=== PATIENT | male | born 1950 | race Caucasian/White ===

== ENCOUNTER 2017-06-04 17:22 | Emergency (ER) | payer MEDICARE, OTHER ==
[~2017-06-04 17:22] MED LIST: ASPI-555 PO; ATOR10 PO; CLOP75TA14 PO; LORA-705 PO; VIT1CAPS5 PO; ZOLP10TA6 PO
[2017-06-04] MEDS ORDERED: FLUORESCEIN SODIUM 0.6 MG STRIP ONE (17:48)
[2017-06-04] MEDS ORDERED: TETRACAINE HCL 0.5% 4 ML OPHTH SOLN ONE (17:48)
[2017-08-30] MEDS ORDERED: ATOR40TA71 PO (13:25)
[2017-08-30] MEDS ORDERED: LOSA25TA21 PO (13:27)
[2017-08-30] MEDS ORDERED: CETI10TA57 PO (13:27)
[2017-08-30] MEDS ORDERED: ASPI-1181 PO (13:27)
[2017-08-30] MEDS ORDERED: VIT1CAPS47 PO (13:27)
[2017-08-30] MEDS ORDERED: OMEP20CA10 PO (13:27)
[2017-08-30] MEDS ORDERED: AMLO10TA2 PO (13:27)
== END 2017-06-04 18:43 | disposition home or self-care (01) ==
LOC: EDH 17:22
DX: S00.12XA Contusion of left eyelid and periocular area, initial encounter (principal); I25.10 Atherosclerotic heart disease of native coronary artery without angina pectoris; E78.5 Hyperlipidemia, unspecified; I10 Essential (primary) hypertension; Z86.73 Personal history of transient ischemic attack (TIA), and cerebral infarction without residual deficits; Z87.891 Personal history of nicotine dependence; X58.XXXA Exposure to other specified factors, initial encounter; Y93.89 Activity, other specified; Y92.89 Other specified places as the place of occurrence of the external cause; Y99.8 Other external cause status
CPT/HCPCS: 70450; 70486

== ENCOUNTER 2017-08-04 09:42 | Emergency (ER) | payer MEDICARE, OTHER ==
[2017-08-04 10:07] LABS: BASOPHILS % (AUTO) 0.7 % (0.0-5.0); EOSINOPHILS % (AUTO) 2.9 % (0.0-8.0); HEMATOCRIT 41.4 % (42-54); LYMPHOCYTES % (AUTO) 12.5 % (21.0-51.0); MEAN CORPUSCULAR HEMOGLOBIN 30.1 pg (27.0-33.0); MEAN CORPUSCULAR HGB CONC 34.1 g/dL (32.0-36.0); MEAN CORPUSCULAR VOLUME 88.4 fL (79-99); MONOCYTES % (AUTO) 8.7 % (3.0-13.0); NEUTROPHILS % (AUTO) 75.2 % (40.0-77.0); PLATELET COUNT (AUTO) 149 K/uL (130-400); RED BLOOD CELL COUNT(AUTO) 4.68 MIL/uL (4.50-6.20); RED CELL DISTRIBUTION WIDTH 14.5 % (11.0-15.5); WHITE BLOOD COUNT (AUTO) 7.8 K/uL (4.8-10.8)
[2017-08-04 10:15] LABS: CREATININE 1.3 mg/dL (0.5-1.5); POTASSIUM 4.1 mmol/L (3.5-5.1)
[2017-08-04 10:19] LABS: INR 0.92 (0.85-1.15); PARTIAL THROMBOPLASTIN TIME 24.3 SEC (26.3-35.5); PROTHROMBIN TIME 9.5 SEC (9.6-11.6)
[2017-08-04 10:21] LABS: ALBUMIN 3.8 g/dL (3.5-5.0); BILIRUBIN,TOTAL 1.1 mg/dL (0.2-1.0); TOTAL PROTEIN, SERUM 7.2 g/dL (6.0-8.3)
[2017-08-04 10:38] LABS: CREATINE KINASE, TOTAL 53 U/L (21-232); MYOGLOBIN 45 ng/mL (10-92); TROPONIN I < 0.04 ng/mL (0.00-0.06)
[2017-08-04] MEDS ORDERED: ASPIRIN 325 MG TABLET ONE (15:05)
[2017-08-30] MEDS ORDERED: ATOR40TA71 PO (13:25)
[2017-08-30] MEDS ORDERED: CETI10TA57 PO (13:27)
[2017-08-30] MEDS ORDERED: VIT1CAPS47 PO (13:27)
[2017-08-30] MEDS ORDERED: LOSA25TA21 PO (13:27)
[2017-08-30] MEDS ORDERED: ASPI-1181 PO (13:27)
[2017-08-30] MEDS ORDERED: OMEP20CA10 PO (13:27)
[2017-08-30] MEDS ORDERED: AMLO10TA2 PO (13:27)
== END 2017-08-04 15:31 | disposition home or self-care (01) ==
LOC: EDH 09:42
DX: I63.9 Cerebral infarction, unspecified (principal); E78.5 Hyperlipidemia, unspecified; I10 Essential (primary) hypertension; I25.10 Atherosclerotic heart disease of native coronary artery without angina pectoris; Z87.891 Personal history of nicotine dependence; Z88.8 Allergy status to other drugs, medicaments and biological substances
CPT/HCPCS: 36415; 70450; 80053; 82550; 82553; 82948; 83874; 84484; 85025; 85610; 85730; 93005

== ENCOUNTER 2017-09-03 05:51 | Day surgery (SDC) | payer MEDICARE ==
[2017-08-30 12:57] VITALS: BP 127/65
[2017-08-30 13:28] LABS: BASOPHILS % (AUTO) 0.4 % (0.0-5.0); EOSINOPHILS % (AUTO) 1.7 % (0.0-8.0); HEMATOCRIT 41.8 % (42-54); LYMPHOCYTES % (AUTO) 12.1 % (21.0-51.0); MEAN CORPUSCULAR HEMOGLOBIN 30.1 pg (27.0-33.0); MEAN CORPUSCULAR HGB CONC 33.8 g/dL (32.0-36.0); MONOCYTES % (AUTO) 7.4 % (3.0-13.0); NEUTROPHILS % (AUTO) 78.4 % (40.0-77.0); PLATELET COUNT (AUTO) 195 K/uL (130-400); RED CELL DISTRIBUTION WIDTH 14.1 % (11.0-15.5); WHITE BLOOD COUNT (AUTO) 9.4 K/uL (4.8-10.8)
[2017-08-30 13:39] LABS: CREATININE 1.2 mg/dL (0.5-1.5)
[2017-08-30 13:42] LABS: INR 0.99 (0.85-1.15); PARTIAL THROMBOPLASTIN TIME 27.5 SEC (26.3-35.5); PROTHROMBIN TIME 10.4 SEC (9.6-11.6)
[2017-09-03] VITALS (12 sets, daily range): BP systolic 92–118; BP diastolic 53–77
[~2017-09-03] VITALS: Ht 172.7 cm; Wt 86.0 kg
[~2017-09-03 05:51] MED LIST changes: +AMLO10TA2 PO; +ASPI-1181 PO; -ASPI-555 PO; -ATOR10 PO; +ATOR40TA71 PO; +CETI10TA57 PO; -LORA-705 PO; +LOSA25TA21 PO; +OMEP20CA10 PO; +PHARMACY COMMUNICATION MISC SCH; +VIT1CAPS47 PO; -VIT1CAPS5 PO
[2017-09-03] MEDS ORDERED: CEFAZOLIN SODIUM 1 GM VIAL ONE (07:24)
[2017-09-03] MEDS ORDERED: BUPIVACAINE/PF 0.25% 30ML VIAL IJ ONE (07:24)
[2017-09-03] MEDS ORDERED: MEPERIDINE-PF 25 MG/ML SYG ONE ×2 (07:25→07:44)
[2017-09-03] MEDS ORDERED: LIDOCAINE HCL 1% MDV 50ML VIAL ONE (07:25)
[2017-09-03] MEDS ORDERED: MIDAZOLAM HCL 1 MG/ML 2ML VIAL ONE ×3 (07:25→11:30)
[2017-09-03] MEDS ORDERED: SODIUM CHLORIDE 0.9% 1000ML 1,000 ML IV ONE (07:32)
[2017-09-03] MEDS ORDERED: ACETAMINOPHEN-CODEINE 300/30MG TAB PO PRN (08:15)
[2017-09-03] MEDS ORDERED: ACETAMINOPHEN 325 MG TAB PO PRN (08:15)
[2017-09-03] MEDS ORDERED: LIDOCAINE HCL 2% VISCOUS 15 ML UDCUP PO SCH (10:25)
[2017-09-03] MEDS ORDERED: FENTANYL CITRATE PF 50 MCG/1 ML 2ML VIAL ONE (11:29)
== END 2017-09-03 14:35 | disposition home or self-care (01) ==
LOC: DAH 05:51
PROVIDERS: ATTEND Internal Medicine Cardiovascular Disease
DX: G45.9 Transient cerebral ischemic attack, unspecified (principal); I35.1 Nonrheumatic aortic (valve) insufficiency; I25.10 Atherosclerotic heart disease of native coronary artery without angina pectoris; I21.3 ST elevation (STEMI) myocardial infarction of unspecified site; Q60.0 Renal agenesis, unilateral; E78.5 Hyperlipidemia, unspecified; I10 Essential (primary) hypertension; G43.909 Migraine, unspecified, not intractable, without status migrainosus; G47.33 Obstructive sleep apnea (adult) (pediatric); Z79.899 Other long term (current) drug therapy; R00.1 Bradycardia, unspecified; Z98.890 Other specified postprocedural states; I25.9 Chronic ischemic heart disease, unspecified
CPT/HCPCS: 33282; 36415; 80048; 85025; 85610; 85730; 93312; 99152; 99153; A4606; C1764; J0690; J2175 ×2; J2250 ×3; J3010; J3490 ×2; J7030

== ENCOUNTER 2017-09-05 12:10 | Emergency (ER) | payer MEDICARE ==
[~2017-09-05 12:10] MED LIST changes: -PHARMACY COMMUNICATION MISC SCH
[2017-09-05 12:29] LABS: BASOPHILS % (AUTO) 0.8 % (0.0-5.0); EOSINOPHILS % (AUTO) 2.2 % (0.0-8.0); HEMATOCRIT 39.8 % (42-54); LYMPHOCYTES % (AUTO) 16.1 % (21.0-51.0); MEAN CORPUSCULAR VOLUME 88.3 fL (79-99); MONOCYTES % (AUTO) 7.6 % (3.0-13.0); NEUTROPHILS % (AUTO) 73.3 % (40.0-77.0); PLATELET COUNT (AUTO) 164 K/uL (130-400); RED BLOOD CELL COUNT(AUTO) 4.51 MIL/uL (4.50-6.20); RED CELL DISTRIBUTION WIDTH 14.5 % (11.0-15.5); WHITE BLOOD COUNT (AUTO) 7.2 K/uL (4.8-10.8)
[2017-09-05 12:40] LABS: CREATININE 1.3 mg/dL (0.5-1.5); POTASSIUM 4.2 mmol/L (3.5-5.1)
[2017-09-05 12:41] LABS: INR 0.95 (0.85-1.15); PARTIAL THROMBOPLASTIN TIME 27.1 SEC (26.3-35.5)
[2017-09-05 12:44] LABS: BILIRUBIN,TOTAL 1.1 mg/dL (0.2-1.0); TOTAL PROTEIN, SERUM 7.2 g/dL (6.0-8.3)
[2017-09-05 13:13] LABS: APPEARANCE,URINE Clear (CLEAR); BILIRUBIN,URINE Negative (NEGATIVE); COLOR,URINE Yellow (YELLOW); GLUCOSE, URINE (UA) Negative (NEGATIVE); KETONES,URINE Negative (NEGATIVE); LEUKOCYTE ESTERASE ,URINE Negative (NEGATIVE); NITRATE,URINE Negative (NEGATIVE); OCCULT BLOOD,URINE Negative (NEGATIVE); PROTEIN,URINE Negative (NEGATIVE)
[2017-09-05 13:18] LABS: B-TYPE NATRIURETIC PEPTIDE 14 pg/mL (0-100)
== END 2017-09-05 15:14 | disposition home or self-care (01) ==
LOC: EDH 12:10
DX: R53.1 Weakness (principal); R41.82 Altered mental status, unspecified; R53.83 Other fatigue; R06.00 Dyspnea, unspecified; R79.1 Abnormal coagulation profile; I10 Essential (primary) hypertension; E78.5 Hyperlipidemia, unspecified; I25.10 Atherosclerotic heart disease of native coronary artery without angina pectoris; Z86.73 Personal history of transient ischemic attack (TIA), and cerebral infarction without residual deficits; Z88.8 Allergy status to other drugs, medicaments and biological substances
CPT/HCPCS: 36415; 70450; 71045; 80053; 81003; 82550; 83880; 84484; 85025; 85610; 85730; 93005

== ENCOUNTER 2018-05-06 06:25 | Inpatient (IN) | payer MEDICARE | END 2018-05-09 18:24 | disposition home or self-care (01) | LOC: EDH 06:25 → 2DH 05-07 17:42 → EDHIP 12:31 | DX: A79.1 Rickettsialpox due to Rickettsia akari (principal); G03.9 Meningitis, unspecified; R50.9 Fever, unspecified; I10 Essential (primary) hypertension; E78.5 Hyperlipidemia, unspecified; D69.6 Thrombocytopenia, unspecified ==

== ENCOUNTER 2018-05-11 09:45 | Emergency (ER) | payer MEDICARE, OTHER ==
[~2018-05-11] VITALS: Ht 172.7 cm; Wt 86.6 kg
[~2018-05-11 09:45] MED LIST changes: -AMLO10TA2 PO; +AMLO10TA7 PO; -LOSA25TA21 PO; +LOSA25TA41 PO
[2018-05-11 10:12] LABS: BASOPHILS % (AUTO) 0.3 % (0.0-5.0); EOSINOPHILS % (AUTO) 3.4 % (0.0-8.0); HEMATOCRIT 40.5 % (42-54); LYMPHOCYTES % (AUTO) 12.8 % (21.0-51.0); MEAN CORPUSCULAR HEMOGLOBIN 29.7 pg (27.0-33.0); MEAN CORPUSCULAR HGB CONC 33.6 g/dL (32.0-36.0); MEAN CORPUSCULAR VOLUME 88.5 fL (79-99); MONOCYTES % (AUTO) 6.9 % (3.0-13.0); NEUTROPHILS % (AUTO) 76.6 % (40.0-77.0); NUCLEATED RED BLOOD CELLS 0.1 % (0.0-0.19); PLATELET COUNT (AUTO) 147 K/uL (130-400); RED BLOOD CELL COUNT(AUTO) 4.57 MIL/uL (4.50-6.20); RED CELL DISTRIBUTION WIDTH 13.7 % (11.0-15.5); WHITE BLOOD COUNT (AUTO) 6.8 K/uL (4.8-10.8)
[2018-05-11 10:19] LABS: CREATININE 1.3 mg/dL (0.5-1.5); POTASSIUM 4.7 mmol/L (3.5-5.1)
[2018-05-11 10:21] LABS: INR 0.95 (0.85-1.15); PARTIAL THROMBOPLASTIN TIME 26.8 SEC (26.3-35.5)
[2018-05-11 10:24] LABS: ALBUMIN 3.4 g/dL (3.5-5.0); TOTAL PROTEIN, SERUM 7.1 g/dL (6.0-8.3)
[2018-05-11 10:57] LABS: APPEARANCE,URINE Clear (CLEAR); BILIRUBIN,URINE Negative (NEGATIVE); COLOR,URINE Yellow (YELLOW); GLUCOSE, URINE (UA) Negative (NEGATIVE); KETONES,URINE Negative (NEGATIVE); LEUKOCYTE ESTERASE ,URINE Negative (NEGATIVE); NITRATE,URINE Negative (NEGATIVE); OCCULT BLOOD,URINE Negative (NEGATIVE); PROTEIN,URINE Negative (NEGATIVE)
[2018-05-11] MEDS ORDERED: LEVETIRACETAM 1,000 MG in SODIUM CHLORIDE 0.9% 100 ML IV SCH (18:00)
== END 2018-05-11 18:53 | disposition home or self-care (01) ==
LOC: EDH 09:45
DX: R41.82 Altered mental status, unspecified (principal); I10 Essential (primary) hypertension; I25.2 Old myocardial infarction; I25.810 Atherosclerosis of coronary artery bypass graft(s) without angina pectoris; E78.5 Hyperlipidemia, unspecified; Z79.82 Long term (current) use of aspirin; Z88.8 Allergy status to other drugs, medicaments and biological substances
CPT/HCPCS: 36415; 70450; 71045; 80053; 81003; 82550; 84484; 85025; 85610; 85730; 93005; 96365; 99284; J1953

== ENCOUNTER → 2019-04-06 | Outpatient (CLI) | payer OTHER ==
[~2019-04-06] MED LIST changes: +OMEP-298 PO; -OMEP20CA10 PO
== END | disposition home or self-care (01) ==
LOC: RAH 07:53
PROVIDERS: ATTEND Internal Medicine Gastroenterology
DX: M75.22 Bicipital tendinitis, left shoulder (principal); M75.21 Bicipital tendinitis, right shoulder; M19.012 Primary osteoarthritis, left shoulder; M75.102 Unspecified rotator cuff tear or rupture of left shoulder, not specified as traumatic; M75.101 Unspecified rotator cuff tear or rupture of right shoulder, not specified as traumatic; Z86.010 Personal history of colon polyps
CPT/HCPCS: 73221; 74270

== ENCOUNTER 2020-03-09 07:00 | Emergency (ER) | payer OTHER, MEDICARE ==
[~2020-03-09 07:00] MED LIST changes: +AMLO-258 PO; -AMLO10TA7 PO; -ASPI-1181 PO; +ASPI-1443 PO; -OMEP-298 PO; +OMEP20CA12 PO
[2020-03-09] MEDS ORDERED: ASPIRIN 325 MG TABLET ONE (07:19)
[2020-03-09 07:51] LABS: BASOPHILS % (AUTO) 0.2 % (0.0-5.0); EOSINOPHILS % (AUTO) 1.5 % (0.0-8.0); HEMATOCRIT 43.2 % (42-54); LYMPHOCYTES % (AUTO) 10.7 % (21.0-51.0); MEAN CORPUSCULAR HEMOGLOBIN 29.3 pg (27.0-33.0); MEAN CORPUSCULAR HGB CONC 32.6 g/dL (32.0-36.0); MEAN CORPUSCULAR VOLUME 89.8 fL (79-99); PLATELET COUNT (AUTO) 113 K/uL (130-400); RED BLOOD CELL COUNT(AUTO) 4.81 MIL/uL (4.50-6.20); RED CELL DISTRIBUTION WIDTH 13.6 % (11.0-15.5); WHITE BLOOD COUNT (AUTO) 5.4 K/uL (4.8-10.8)
[2020-03-09 08:05] LABS: BILIRUBIN,TOTAL 1.2 mg/dL (0.2-1.0); CREATININE 1.4 mg/dL (0.5-1.5); POTASSIUM 3.9 mmol/L (3.5-5.1); TOTAL PROTEIN, SERUM 7.3 g/dL (6.0-8.3)
[2020-03-09 08:27] LABS: INR 0.91 (0.85-1.15); PARTIAL THROMBOPLASTIN TIME 25.8 SEC (26.3-35.5); PROTHROMBIN TIME 9.9 SEC (9.6-11.6)
[2020-03-09 08:30] LABS: B-TYPE NATRIURETIC PEPTIDE 7 pg/mL (0-100)
[2020-03-09 08:57] LABS: CRP QUANTITATIVE 14.2 mg/L (0.00-9.0)
== END 2020-03-09 10:12 | disposition home or self-care (01) ==
LOC: EDH 07:00
DX: U07.1 COVID-19 (principal); J40 Bronchitis, not specified as acute or chronic; I10 Essential (primary) hypertension; E78.5 Hyperlipidemia, unspecified; I25.2 Old myocardial infarction; I25.10 Atherosclerotic heart disease of native coronary artery without angina pectoris; Z86.73 Personal history of transient ischemic attack (TIA), and cerebral infarction without residual deficits; Z79.899 Other long term (current) drug therapy
CPT/HCPCS: 36415; 71045; 80053; 82550; 82728; 83615; 83880; 84484; 85025; 85378; 85610; 85651; 85730; 86140; 87426; 87804; 93005

== ENCOUNTER 2020-03-14 14:58 | Inpatient (IN) | payer MEDICARE, OTHER ==
[~2020-03-14] VITALS: Ht 172.7 cm; Wt 88.4 kg
[2020-03-14 15:57] LABS: BASOPHILS % (AUTO) 0.2 % (0.0-5.0); EOSINOPHILS % (AUTO) 0.8 % (0.0-8.0); LYMPHOCYTES % (AUTO) 10.6 % (21.0-51.0); MEAN CORPUSCULAR HEMOGLOBIN 28.8 pg (27.0-33.0); MEAN CORPUSCULAR HGB CONC 32.8 g/dL (32.0-36.0); MEAN CORPUSCULAR VOLUME 87.9 fL (79-99); MONOCYTES % (AUTO) 6.7 % (3.0-13.0); NEUTROPHILS % (AUTO) 80.9 % (40.0-77.0); PLATELET COUNT (AUTO) 128 K/uL (130-400); RED BLOOD CELL COUNT(AUTO) 4.55 MIL/uL (4.50-6.20); RED CELL DISTRIBUTION WIDTH 13.4 % (11.0-15.5); WHITE BLOOD COUNT (AUTO) 4.9 K/uL (4.8-10.8)
[2020-03-14] MEDS ORDERED: DEXAMETHASONE SOD PHOSPHATE 10MG/ML 1ML VIAL ONE (15:59)
[2020-03-14] MEDS ORDERED: ACETAMINOPHEN 325 MG TAB ONE (16:00)
[2020-03-14] MEDS ORDERED: CEFTRIAXONE SODIUM 1 GM ONE (16:00)
[2020-03-14] MEDS ORDERED: AZITHROMYCIN 500MG+NS 250ML 250 ML IV ONE (16:00)
[2020-03-14 16:01] LABS: APPEARANCE,URINE Clear (CLEAR); BILIRUBIN,URINE Negative (NEGATIVE); COLOR,URINE Dark Yellow (YELLOW); GLUCOSE, URINE (UA) Negative (NEGATIVE); KETONES,URINE Trace mg/dL (NEGATIVE); LEUKOCYTE ESTERASE ,URINE Negative (NEGATIVE); NITRATE,URINE Negative (NEGATIVE); OCCULT BLOOD,URINE Negative (NEGATIVE); PROTEIN,URINE POS 1+ mg/dL (NEGATIVE)
[2020-03-14 16:11] LABS: CREATININE 1.4 mg/dL (0.5-1.5); POTASSIUM 4.3 mmol/L (3.5-5.1)
[2020-03-14 16:15] LABS: ABG BASE EXCESS -0.3 mmol/L (-2.0-3.0); ABG HCO3 23.4 mmol/L (21.0-28.0); ABG OXYGEN SATURATION 97.1 % (95.0-99.0); ABG PCO2 36 mmHg (35-48)
[2020-03-14 16:15] LABS: RBC,URINE 0-1 /HPF (0-1); WBC,URINE 0-1 /HPF (0-1)
[2020-03-14 16:15] LABS: ALBUMIN 3.1 g/dL (3.5-5.0)
[2020-03-14 16:16] LABS: BACTERIA,URINE Rare /HPF (None Seen); SQUAMOUS EPITHELIAL CELL,UR Few /HPF (0-2)
[2020-03-14 16:20] LABS: B-TYPE NATRIURETIC PEPTIDE < 5 pg/mL (0-100)
[2020-03-14 16:22] LABS: CRP QUANTITATIVE 74.6 mg/L (0.00-9.0)
[2020-03-14] MEDS ORDERED: NITROGLYCERIN 0.4 MG SL TAB SL PRN (19:30)
[2020-03-14] MEDS ORDERED: DIPHENHYDRAMINE HCL 25 MG CAPSULE PO PRN (19:30)
[2020-03-14] MEDS ORDERED: ONDANSETRON HCL 4 MG/2 ML VIAL IV PRN (19:30)
[2020-03-14] MEDS ORDERED: ERGOCALCIFEROL (VITAMIN D2) 50,000 UNIT CAPSULE PO ONE (19:30)
[2020-03-14] MEDS ORDERED: ACETAMINOPHEN 325 MG TAB PO PRN ×2 (19:30)
[2020-03-14 19:44] LABS: MAGNESIUM 2.1 mg/dL (1.80-2.40)
[2020-03-14 20:49] LABS: CREATINE KINASE, TOTAL 29 U/L (21-232); MYOGLOBIN 51 ng/mL (10-92); TROPONIN I < 0.04 ng/mL (0.00-0.06)
[2020-03-14] MEDS: ACETYLCYSTEINE 600 MG CAPSULE PO SCH (21:00)
[2020-03-14] MEDS: FAMOTIDINE 20MG TAB 20 MG TAB PO SCH (21:00)
[2020-03-14] MEDS ORDERED: FAMOTIDINE 20MG TAB 20 MG TAB ONE (21:39)
[2020-03-14] MEDS ORDERED: ERGOCALCIFEROL (VITAMIN D2) 50,000 UNIT CAPSULE ONE (21:39)
[2020-03-14] MEDS ORDERED: ACETYLCYSTEINE 600 MG CAPSULE ONE (21:40)
[2020-03-14] MEDS ORDERED: LACTATED RINGERS 1000ML 1,000 ML IV ONE (21:40)
[2020-03-15] MEDS: ALBUTEROL INHALER 90MCG/INH IH SCH ×6 (01:55→22:00)
[2020-03-15 04:31] LABS: BASOPHILS % (AUTO) 0.2 % (0.0-5.0); HEMATOCRIT 43.2 % (42-54); LYMPHOCYTES % (AUTO) 9.2 % (21.0-51.0); MEAN CORPUSCULAR HEMOGLOBIN 29.2 pg (27.0-33.0); MEAN CORPUSCULAR HGB CONC 33.3 g/dL (32.0-36.0); MEAN CORPUSCULAR VOLUME 87.6 fL (79-99); MONOCYTES % (AUTO) 3.4 % (3.0-13.0); NEUTROPHILS % (AUTO) 86.1 % (40.0-77.0); PLATELET COUNT (AUTO) 143 K/uL (130-400); RED BLOOD CELL COUNT(AUTO) 4.93 MIL/uL (4.50-6.20); RED CELL DISTRIBUTION WIDTH 13.1 % (11.0-15.5); WHITE BLOOD COUNT (AUTO) 4.5 K/uL (4.8-10.8)
[2020-03-15 04:40] VITALS: BP 148/69
[2020-03-15 04:45] LABS: ALBUMIN 3.1 g/dL (3.5-5.0); BILIRUBIN,TOTAL 0.8 mg/dL (0.2-1.0); CREATININE 1.3 mg/dL (0.5-1.5); CRP QUANTITATIVE 78.3 mg/L (0.00-9.0); POTASSIUM 4.9 mmol/L (3.5-5.1)
[2020-03-15] MEDS ORDERED: LEVE-43 PO (05:02)
[2020-03-15] MEDS ORDERED: NITR0.4T50 SL (05:02)
[2020-03-15] MEDS: LACTATED RINGERS 1000ML 1,000 ML IV SCH ×2 (05:34→23:29)
[2020-03-15 08:10] VITALS: BP 148/85
[2020-03-15] MEDS ORDERED: AZITHROMYCIN 500MG+NS 250ML 250 ML IV SCH (09:00)
[2020-03-15] MEDS: ZINC SULFATE 220 CAPSULE PO SCH (10:15)
[2020-03-15] MEDS: ACETYLCYSTEINE 600 MG CAPSULE PO SCH ×2 (10:15→20:33)
[2020-03-15] MEDS: DEXAMETHASONE SOD PHOSPHATE 4 MG/ML 1ML VIAL IVP SCH (10:16)
[2020-03-15] MEDS: FAMOTIDINE 20MG TAB 20 MG TAB PO SCH ×2 (10:17→20:33)
[2020-03-15] MEDS: ASCORBIC ACID 500 MG TAB PO SCH (10:17)
[2020-03-15] MEDS: CEFTRIAXONE SODIUM 1 GM IVP SCH (10:18)
[2020-03-15 18:15] VITALS: BP 138/78
[2020-03-15 20:20] VITALS: BP 128/76
[2020-03-15] MEDS ORDERED: ATORVASTATIN CALCIUM 40 MG TABLET PO SCH (21:00)
[2020-03-15] MEDS: LEVETIRACETAM 500 MG TABLET PO SCH (21:16)
[2020-03-15] MEDS: ENOXAPARIN SODIUM 40 MG/0.4 ML SYRINGE SQ SCH (23:11)
[2020-03-16 00:32] VITALS: BP 101/52
[2020-03-16] MEDS: ALBUTEROL INHALER 90MCG/INH IH SCH ×2 (02:00→06:00)
[2020-03-16 04:21] VITALS: BP 150/72
[2020-03-16 04:58] LABS: HEMATOCRIT 38.2 % (42-54); LYMPHOCYTES % (AUTO) 4.8 % (21.0-51.0); MEAN CORPUSCULAR HEMOGLOBIN 29.4 pg (27.0-33.0); MEAN CORPUSCULAR HGB CONC 33.5 g/dL (32.0-36.0); MEAN CORPUSCULAR VOLUME 87.8 fL (79-99); MONOCYTES % (AUTO) 5.7 % (3.0-13.0); NEUTROPHILS % (AUTO) 88.7 % (40.0-77.0); PLATELET COUNT (AUTO) 171 K/uL (130-400); RED BLOOD CELL COUNT(AUTO) 4.35 MIL/uL (4.50-6.20); RED CELL DISTRIBUTION WIDTH 13.1 % (11.0-15.5); WHITE BLOOD COUNT (AUTO) 9.3 K/uL (4.8-10.8)
[2020-03-16 05:13] LABS: ALBUMIN 2.8 g/dL (3.5-5.0); BILIRUBIN,TOTAL 0.6 mg/dL (0.2-1.0); CREATININE 1.2 mg/dL (0.5-1.5); CRP QUANTITATIVE 33.5 mg/L (0.00-9.0); POTASSIUM 4.1 mmol/L (3.5-5.1); TOTAL PROTEIN, SERUM 6.3 g/dL (6.0-8.3)
[2020-03-16 06:56] LABS: INR 0.96 (0.85-1.15); PROTHROMBIN TIME 10.4 SEC (9.6-11.6)
[2020-03-16] MEDS ORDERED: ASCO500T20 PO ×2 (08:01)
[2020-03-16] MEDS ORDERED: DEXA6TAB PO ×2 (08:01)
[2020-03-16] MEDS ORDERED: ZINC220C6 PO ×2 (08:01)
[2020-03-16] MEDS ORDERED: APIX2.5T PO ×2 (08:01)
[2020-03-16] MEDS: ACETYLCYSTEINE 600 MG CAPSULE PO SCH (08:54)
[2020-03-16] MEDS: LEVETIRACETAM 500 MG TABLET PO SCH (08:54)
[2020-03-16] MEDS: DEXAMETHASONE SOD PHOSPHATE 4 MG/ML 1ML VIAL IVP SCH (08:54)
[2020-03-16] MEDS: FAMOTIDINE 20MG TAB 20 MG TAB PO SCH (08:54)
[2020-03-16] MEDS: CEFTRIAXONE SODIUM 1 GM IVP SCH (08:54)
[2020-03-16] MEDS: ENOXAPARIN SODIUM 40 MG/0.4 ML SYRINGE SQ SCH (08:55)
[2020-03-16] MEDS: ASCORBIC ACID 500 MG TAB PO SCH (08:55)
[2020-03-16] MEDS: ZINC SULFATE 220 CAPSULE PO SCH (08:55)
[2020-03-16] MEDS ORDERED: CLOPIDOGREL BISULFATE 75 MG TAB PO SCH (09:00)
[2020-03-16] MEDS ORDERED: ASPIRIN 81 MG EC TAB PO SCH (09:00)
== END 2020-03-16 09:50 | disposition home or self-care (01) | DRG 177 ==
LOC: EDH 14:58 → EDHIP 19:05 → 2BH 03-15 04:37
PROVIDERS: ADMIT Internal Medicine; ATTEND Internal Medicine
DX: U07.1 COVID-19 (principal); J12.89 Other viral pneumonia; J96.00 Acute respiratory failure, unspecified whether with hypoxia or hypercapnia; D68.59 Other primary thrombophilia; N18.30 Chronic kidney disease, stage 3 unspecified; E78.5 Hyperlipidemia, unspecified; G40.909 Epilepsy, unspecified, not intractable, without status epilepticus; I12.9 Hypertensive chronic kidney disease with stage 1 through stage 4 chronic kidney disease, or unspecified chronic kidney disease; D69.6 Thrombocytopenia, unspecified; R79.89 Other specified abnormal findings of blood chemistry; Z88.8 Allergy status to other drugs, medicaments and biological substances; I25.2 Old myocardial infarction; Z95.5 Presence of coronary angioplasty implant and graft; Z86.73 Personal history of transient ischemic attack (TIA), and cerebral infarction without residual deficits; Z83.3 Family history of diabetes mellitus; Z83.6 Family history of other diseases of the respiratory system; Z84.89 Family history of other specified conditions; Z82.49 Family history of ischemic heart disease and other diseases of the circulatory system
CPT/HCPCS: 36415; 36600; 71045; 80053; 81001; 82550; 82728; 82803; 83605; 83615; 83735; 83874; 83880; 84145; 84484; 85025; 85378; 85610; 86140; 87040; 87449; 93005; 93970; 94760; G0378; J0456; J0696; J1100; J1650; J7120; U0003

== ENCOUNTER 2020-03-17 10:11 | Inpatient (IN) | payer MEDICARE, OTHER ==
[~2020-03-17] VITALS: Ht 172.7 cm; Wt 41.4 kg
[2020-03-17] VITALS (17 sets, daily range): BP systolic 108–137; BP diastolic 58–78
[~2020-03-17 10:11] MED LIST changes: +APIX2.5T PO; +ASCO500T20 PO; +DEXA6TAB PO; +LEVE-43 PO; +NITR0.4T50 SL; +ZINC220C6 PO
[2020-03-17 11:01] LABS: BASOPHILS % (AUTO) 0.2 % (0.0-5.0); HEMATOCRIT 38.4 % (42-54); LYMPHOCYTES % (AUTO) 3.6 % (21.0-51.0); MEAN CORPUSCULAR HEMOGLOBIN 29.4 pg (27.0-33.0); MEAN CORPUSCULAR HGB CONC 33.9 g/dL (32.0-36.0); MEAN CORPUSCULAR VOLUME 86.9 fL (79-99); MONOCYTES % (AUTO) 9.7 % (3.0-13.0); NEUTROPHILS % (AUTO) 85.1 % (40.0-77.0); PLATELET COUNT (AUTO) 208 K/uL (130-400); RED BLOOD CELL COUNT(AUTO) 4.42 MIL/uL (4.50-6.20); RED CELL DISTRIBUTION WIDTH 13.6 % (11.0-15.5); WHITE BLOOD COUNT (AUTO) 11.6 K/uL (4.8-10.8)
[2020-03-17 11:20] LABS: ALANINE AMINOTRANSFERASE 62 U/L (12-78); ALBUMIN 3.1 g/dL (3.5-5.0); ASPARTATE AMINOTRANSFERASE 46 U/L (10-37); CARBON DIOXIDE 25 mmol/L (21-32); CHLORIDE 102 mmol/L (101-111); CREATINE KINASE, TOTAL 47 U/L (21-232); CREATININE 1.5 mg/dL (0.5-1.5); GLOMERULAR FILTR. RATE CALC 49 mL/min (>60); GLUCOSE,RANDOM 119 mg/dL (70-105); LACTATE DEHYDROGENASE 236 U/L (81-234); MYOGLOBIN 81 ng/mL (10-92); POTASSIUM 3.9 mmol/L (3.5-5.1); SODIUM SERUM 136 mmol/L (136-145); TOTAL PROTEIN, SERUM 6.7 g/dL (6.0-8.3); TROPONIN I < 0.04 ng/mL (0.00-0.06); UREA NITROGEN, BLOOD 28 mg/dL (7-18)
[2020-03-17 11:43] LABS: INR 0.98 (0.85-1.15); PROTHROMBIN TIME 10.6 SEC (9.6-11.6)
[2020-03-17 12:03] LABS: ERYTHROCYTE SEDIMENTATION RATE 41 MM/HR (0-20)
[2020-03-17 13:07] LABS: APPEARANCE,URINE Clear (CLEAR); BILIRUBIN,URINE Negative (NEGATIVE); COLOR,URINE Yellow (YELLOW); GLUCOSE, URINE (UA) Negative (NEGATIVE); KETONES,URINE Negative (NEGATIVE); LEUKOCYTE ESTERASE ,URINE Negative (NEGATIVE); NITRATE,URINE Negative (NEGATIVE); OCCULT BLOOD,URINE Negative (NEGATIVE); PH,URINE 5.5 (5.0-8.0); PROTEIN,URINE POS 1+ mg/dL (NEGATIVE)
[2020-03-17 13:20] LABS: ABG BASE EXCESS 2.8 mmol/L (-2.0-3.0); ABG HCO3 26.5 mmol/L (21.0-28.0); ABG OXYGEN SATURATION 92.9 % (95.0-99.0); ABG PCO2 38 mmHg (35-48)
[2020-03-17 13:26] LABS: BACTERIA,URINE Rare /HPF (None Seen); RBC,URINE 0-1 /HPF (0-1); SQUAMOUS EPITHELIAL CELL,UR Rare /HPF (0-2); WBC,URINE 0-1 /HPF (0-1)
[2020-03-17] MEDS ORDERED: DOPAMINE 800MG/D5 250ML 250 ML IV ONE (14:12)
[2020-03-17] MEDS ORDERED: MAG HYDROX/AL HYDROX/SIMETH ES 30 ML SUSP UDCUP PO PRN (14:45)
[2020-03-17] MEDS ORDERED: DEXAMETHASONE SOD PHOSPHATE 4 MG/ML 1ML VIAL IVP SCH (14:45)
[2020-03-17] MEDS ORDERED: DiphenhydrAMINE HCL 50 MG/ML VIAL IV PRN (14:45)
[2020-03-17] MEDS ORDERED: GUAIFENESIN-DM 200/20 MG 10 ML PO PRN (14:45)
[2020-03-17] MEDS ORDERED: LACTULOSE 20 GM/30 ML UDCUP PO PRN (14:45)
[2020-03-17] MEDS ORDERED: ONDANSETRON HCL 4 MG/2 ML VIAL IV PRN (14:45)
[2020-03-17] MEDS ORDERED: DIPHENHYDRAMINE HCL 25 MG CAPSULE PO PRN (14:45)
[2020-03-17] MEDS ORDERED: ACETAMINOPHEN 325 MG TAB PO PRN ×3 (14:45)
[2020-03-17] MEDS ORDERED: ERGOCALCIFEROL (VITAMIN D2) 50,000 UNIT CAPSULE PO SCH (14:45)
[2020-03-17] MEDS ORDERED: MORPHINE SULFATE 2 MG/ML 1ML SYG IV PRN (14:45)
[2020-03-17] MEDS: DOXYCYCLINE 100MG+NS 250ML IV SCH (14:45)
[2020-03-17] MEDS ORDERED: IPRATROPIUM/ALBUTEROL SULFATE 3 ML SOLUTION IH PRN (14:45)
[2020-03-17] MEDS ORDERED: PHARMACY COMMUNICATION MISC SCH ×2 (14:45→16:45)
[2020-03-17] MEDS ORDERED: HYDRALAZINE HCL 20 MG/ML VIAL IV PRN (14:45)
[2020-03-17] MEDS ORDERED: NITROGLYCERIN 0.4 MG SL TAB SL PRN (14:45)
[2020-03-17] MEDS: CEFTRIAXONE SODIUM 1 GM IVP SCH (14:45)
[2020-03-17] MEDS ORDERED: ACETAMINOPHEN-CODEINE 300/30MG TAB PO PRN (14:45)
[2020-03-17] MEDS ORDERED: CEFTRIAXONE SODIUM 1 GM ONE (15:26)
[2020-03-17] MEDS ORDERED: DOXYCYCLINE 100MG+NS 250ML 250 ML IV ONE (15:26)
[2020-03-17] MEDS ORDERED: SODIUM CHLORIDE 0.9% 50 ML IV ONE (15:27)
[2020-03-17] MEDS ORDERED: DEXAMETHASONE SOD PHOSPHATE 10MG/ML 1ML VIAL ONE (15:32)
[2020-03-17] MEDS: FAMOTIDINE 20MG TAB 20 MG TAB PO SCH (21:17)
[2020-03-17] MEDS: BENZONATATE 100 MG CAPSULE PO SCH (21:17)
[2020-03-17] MEDS: ACETYLCYSTEINE 600 MG CAPSULE PO SCH (21:17)
[2020-03-18] VITALS (82 sets, daily range): BP systolic 97–165; BP diastolic 40–94
[2020-03-18] MEDS: CEFTRIAXONE SODIUM 1 GM IVP SCH ×2 (02:07→14:08)
[2020-03-18] MEDS: DOXYCYCLINE 100MG+NS 250ML IV SCH ×2 (02:07→14:08)
[2020-03-18 04:13] LABS: BASOPHILS % (AUTO) 0.4 % (0.0-5.0); HEMATOCRIT 40.8 % (42-54); LYMPHOCYTES % (AUTO) 3.1 % (21.0-51.0); MEAN CORPUSCULAR HEMOGLOBIN 28.7 pg (27.0-33.0); MEAN CORPUSCULAR HGB CONC 32.6 g/dL (32.0-36.0); MEAN CORPUSCULAR VOLUME 88.1 fL (79-99); MONOCYTES % (AUTO) 4.8 % (3.0-13.0); PLATELET COUNT (AUTO) 223 K/uL (130-400); RED BLOOD CELL COUNT(AUTO) 4.63 MIL/uL (4.50-6.20); RED CELL DISTRIBUTION WIDTH 13.3 % (11.0-15.5); WHITE BLOOD COUNT (AUTO) 13.4 K/uL (4.8-10.8)
[2020-03-18 04:44] LABS: ALBUMIN 2.7 g/dL (3.5-5.0); BILIRUBIN,TOTAL 0.7 mg/dL (0.2-1.0); CREATININE 1.3 mg/dL (0.5-1.5); CRP QUANTITATIVE 88.7 mg/L (0.00-9.0); POTASSIUM 4.2 mmol/L (3.5-5.1); TOTAL PROTEIN, SERUM 6.6 g/dL (6.0-8.3)
[2020-03-18] MEDS: ACETYLCYSTEINE 600 MG CAPSULE PO SCH ×2 (10:14→21:00)
[2020-03-18] MEDS: ZINC SULFATE 220 CAPSULE PO SCH (10:14)
[2020-03-18] MEDS: ASCORBIC ACID 500 MG TAB PO SCH (10:15)
[2020-03-18] MEDS: ENOXAPARIN SODIUM 60 MG/0.6 ML SQ SCH (10:15)
[2020-03-18] MEDS: BENZONATATE 100 MG CAPSULE PO SCH ×3 (10:17→21:00)
[2020-03-18] MEDS: ATORVASTATIN CALCIUM 40 MG TABLET PO SCH (21:00)
[2020-03-18] MEDS: FAMOTIDINE 20MG TAB 20 MG TAB PO SCH (21:00)
[2020-03-18] MEDS: LEVETIRACETAM 500 MG TABLET PO SCH (21:00)
[2020-03-19] VITALS (79 sets, daily range): BP systolic 84–148; BP diastolic 39–98
[2020-03-19] MEDS: CEFTRIAXONE SODIUM 1 GM IVP SCH ×2 (02:45→16:20)
[2020-03-19] MEDS: DOXYCYCLINE 100MG+NS 250ML IV SCH ×2 (02:45→16:20)
[2020-03-19 05:24] LABS: BASOPHILS % (AUTO) 0.5 % (0.0-5.0); EOSINOPHILS % (AUTO) 0.1 % (0.0-8.0); HEMATOCRIT 39.6 % (42-54); LYMPHOCYTES % (AUTO) 5.2 % (21.0-51.0); MEAN CORPUSCULAR HEMOGLOBIN 28.8 pg (27.0-33.0); MEAN CORPUSCULAR HGB CONC 32.8 g/dL (32.0-36.0); MEAN CORPUSCULAR VOLUME 87.8 fL (79-99); PLATELET COUNT (AUTO) 234 K/uL (130-400); RED BLOOD CELL COUNT(AUTO) 4.51 MIL/uL (4.50-6.20); RED CELL DISTRIBUTION WIDTH 13.7 % (11.0-15.5); WHITE BLOOD COUNT (AUTO) 13.1 K/uL (4.8-10.8)
[2020-03-19 05:37] LABS: ALBUMIN 2.6 g/dL (3.5-5.0); BILIRUBIN,TOTAL 0.7 mg/dL (0.2-1.0); CREATININE 1.2 mg/dL (0.5-1.5); CRP QUANTITATIVE 45.4 mg/L (0.00-9.0); POTASSIUM 3.7 mmol/L (3.5-5.1); TOTAL PROTEIN, SERUM 6.4 g/dL (6.0-8.3)
[2020-03-19] MEDS ORDERED: NON-FORMULARY MEDICATION 1 EACH (Cetirizine HCl 10 MG) PO SCH (09:00)
[2020-03-19] MEDS: BENZONATATE 100 MG CAPSULE PO SCH ×3 (09:51→20:45)
[2020-03-19] MEDS: CETIRIZINE HCL 5 MG TABLET PO SCH (09:51)
[2020-03-19] MEDS: ZINC SULFATE 220 CAPSULE PO SCH (09:51)
[2020-03-19] MEDS: ASPIRIN 81 MG EC TAB PO SCH (09:51)
[2020-03-19] MEDS: ASCORBIC ACID 500 MG TAB PO SCH (09:51)
[2020-03-19] MEDS: LEVETIRACETAM 500 MG TABLET PO SCH ×2 (09:51→20:45)
[2020-03-19] MEDS: ACETYLCYSTEINE 600 MG CAPSULE PO SCH ×2 (09:51→20:45)
[2020-03-19] MEDS: ENOXAPARIN SODIUM 60 MG/0.6 ML SQ SCH (09:52)
[2020-03-19] MEDS: FAMOTIDINE 20MG TAB 20 MG TAB PO SCH (20:45)
[2020-03-19] MEDS: ATORVASTATIN CALCIUM 40 MG TABLET PO SCH (20:45)
[2020-03-20] VITALS (43 sets, daily range): BP systolic 93–164; BP diastolic 42–90
[2020-03-20 04:27] LABS: BASOPHILS % (AUTO) 0.7 % (0.0-5.0); EOSINOPHILS % (AUTO) 0.6 % (0.0-8.0); HEMATOCRIT 38.2 % (42-54); LYMPHOCYTES % (AUTO) 11.8 % (21.0-51.0); MEAN CORPUSCULAR HEMOGLOBIN 28.9 pg (27.0-33.0); MEAN CORPUSCULAR HGB CONC 32.7 g/dL (32.0-36.0); MEAN CORPUSCULAR VOLUME 88.4 fL (79-99); MONOCYTES % (AUTO) 8.2 % (3.0-13.0); NEUTROPHILS % (AUTO) 71.6 % (40.0-77.0); PLATELET COUNT (AUTO) 219 K/uL (130-400); RED BLOOD CELL COUNT(AUTO) 4.32 MIL/uL (4.50-6.20); RED CELL DISTRIBUTION WIDTH 13.6 % (11.0-15.5); WHITE BLOOD COUNT (AUTO) 10.3 K/uL (4.8-10.8)
[2020-03-20 04:38] LABS: ALBUMIN 2.5 g/dL (3.5-5.0); BILIRUBIN,TOTAL 0.7 mg/dL (0.2-1.0); CREATININE 1.2 mg/dL (0.5-1.5); CRP QUANTITATIVE 34.4 mg/L (0.00-9.0); POTASSIUM 4.2 mmol/L (3.5-5.1); TOTAL PROTEIN, SERUM 6.1 g/dL (6.0-8.3)
[2020-03-20] MEDS: LEVETIRACETAM 500 MG TABLET PO SCH (10:32)
[2020-03-20] MEDS: ASPIRIN 81 MG EC TAB PO SCH (10:32)
[2020-03-20] MEDS: CETIRIZINE HCL 5 MG TABLET PO SCH (10:33)
[2020-03-20] MEDS: ASCORBIC ACID 500 MG TAB PO SCH (10:33)
[2020-03-20] MEDS: ZINC SULFATE 220 CAPSULE PO SCH (10:33)
[2020-03-20] MEDS: ACETYLCYSTEINE 600 MG CAPSULE PO SCH (10:33)
[2020-03-20] MEDS: ENOXAPARIN SODIUM 60 MG/0.6 ML SQ SCH (10:34)
[2020-03-20] MEDS: BENZONATATE 100 MG CAPSULE PO SCH (10:34)
== END 2020-03-20 15:00 | disposition home or self-care (01) | DRG 177 ==
LOC: EDH 10:11 → EDHIP 14:25 → 2BH 17:36
PROVIDERS: ADMIT Hospitalist; ATTEND Hospitalist
DX: U07.1 COVID-19 (principal); J12.89 Other viral pneumonia; J96.21 Acute and chronic respiratory failure with hypoxia; J44.0 Chronic obstructive pulmonary disease with (acute) lower respiratory infection; E11.22 Type 2 diabetes mellitus with diabetic chronic kidney disease; E78.5 Hyperlipidemia, unspecified; I95.9 Hypotension, unspecified; I12.9 Hypertensive chronic kidney disease with stage 1 through stage 4 chronic kidney disease, or unspecified chronic kidney disease; I25.10 Atherosclerotic heart disease of native coronary artery without angina pectoris; I25.2 Old myocardial infarction; N18.30 Chronic kidney disease, stage 3 unspecified; Z86.73 Personal history of transient ischemic attack (TIA), and cerebral infarction without residual deficits; Z95.5 Presence of coronary angioplasty implant and graft; Z88.6 Allergy status to analgesic agent; Z88.8 Allergy status to other drugs, medicaments and biological substances
CPT/HCPCS: 36415; 36600; 71045; 80053; 81001; 82550; 82728; 82803; 83605; 83615; 83874; 84145; 84484; 85025; 85378; 85610; 85651; 85730; 86140; 86850; 86900; 86901; 87040; 87088; 93005; G0378; J0696; J1100; J1265; J1650; J3490

== ENCOUNTER 2020-03-23 09:20 | Inpatient (IN) | payer MEDICARE, OTHER ==
[~2020-03-23] VITALS: Ht 172.7 cm; Wt 88.0 kg
[~2020-03-23 09:20] MED LIST changes: -AMLO-258 PO; -CLOP75TA14 PO; -DEXA6TAB PO; -LOSA25TA41 PO
[2020-03-23] MEDS ORDERED: ALBUTEROL INHALER 90MCG/INH IH ONE (11:05)
[2020-03-23 11:38] LABS: BASOPHILS % (AUTO) 0.7 % (0.0-5.0); HEMATOCRIT 43.3 % (42-54); LYMPHOCYTES % (AUTO) 10.9 % (21.0-51.0); MEAN CORPUSCULAR HEMOGLOBIN 29.5 pg (27.0-33.0); MEAN CORPUSCULAR VOLUME 89.5 fL (79-99); MONOCYTES % (AUTO) 7.2 % (3.0-13.0); PLATELET COUNT (AUTO) 278 K/uL (130-400); RED BLOOD CELL COUNT(AUTO) 4.84 MIL/uL (4.50-6.20); RED CELL DISTRIBUTION WIDTH 13.6 % (11.0-15.5); WHITE BLOOD COUNT (AUTO) 12.9 K/uL (4.8-10.8)
[2020-03-23 11:50] LABS: CARBON DIOXIDE 27 mmol/L (21-32); CHLORIDE 104 mmol/L (101-111); CREATININE 1.2 mg/dL (0.5-1.5); GLOMERULAR FILTR. RATE CALC 63 mL/min (>60); GLUCOSE,RANDOM 92 mg/dL (70-105); POTASSIUM 4.2 mmol/L (3.5-5.1); SODIUM SERUM 136 mmol/L (136-145); UREA NITROGEN, BLOOD 19 mg/dL (7-18)
[2020-03-23 12:08] LABS: ALANINE AMINOTRANSFERASE 50 U/L (12-78); ALBUMIN 3.1 g/dL (3.5-5.0); ASPARTATE AMINOTRANSFERASE 25 U/L (10-37); BILIRUBIN,TOTAL 1.2 mg/dL (0.2-1.0); CREATINE KINASE, TOTAL 18 U/L (21-232); LACTATE DEHYDROGENASE 231 U/L (81-234); MYOGLOBIN 33 ng/mL (10-92); TOTAL PROTEIN, SERUM 7.3 g/dL (6.0-8.3); TROPONIN I < 0.04 ng/mL (0.00-0.06)
[2020-03-23 12:47] LABS: INR 0.92 (0.85-1.15); PARTIAL THROMBOPLASTIN TIME 26.8 SEC (26.3-35.5)
[2020-03-23 12:49] LABS: ERYTHROCYTE SEDIMENTATION RATE 38 MM/HR (0-20)
[2020-03-23 13:50] LABS: APPEARANCE,URINE Clear (CLEAR); BILIRUBIN,URINE Negative (NEGATIVE); COLOR,URINE Yellow (YELLOW); GLUCOSE, URINE (UA) Negative (NEGATIVE); KETONES,URINE Negative (NEGATIVE); LEUKOCYTE ESTERASE ,URINE Negative (NEGATIVE); NITRATE,URINE Negative (NEGATIVE); OCCULT BLOOD,URINE Negative (NEGATIVE); PROTEIN,URINE Negative (NEGATIVE)
--- NOTE | 2020-03-23 15:02 | NUR ---
CM NOTE/DCP CALL FROM ER STAFF STATING MD REQUESTING SNF FOR PATIENT. PATIENT CALLED ON PHONE, STATES HE IS NOT SHORT OF BREATH AT THE MOMENT AND CAN TALK. PATIENT LAST TESTED COVID POSITIVE ON 03/14 PCR. INFORMED PATIENT THAT WE WILL HAVE TO TEST FOR COVID AGAIN TO OBTAIN LATEST RESULT. IF NEGATIVE, CAN GO TO NON COVID SNF, BUT IF POSITIVE, WILL GO TO COVID SNF. PER PATIENT, INTERESTED IN [place] [facility] [place], AP COMPLETED FOR BOTH FACILITIES. PER SPOUSE, WANTS SPOUSE CALLED TO BE INFORMED. SPOUSE, ZACHARY VICENTE, CALLED AND REPORT GIVEN. SPOUSE EMOTIONAL AND CRYING BUT AGREES WITH PLAN. WILL WAIT FOR COVID RESULTS.
[2020-03-23] MEDS ORDERED: ZOLPIDEM TARTRATE 5 MG TAB PO PRN (18:15)
[2020-03-23] MEDS ORDERED: HYDRALAZINE HCL 20 MG/ML VIAL IV PRN (18:15)
[2020-03-23] MEDS ORDERED: NITROGLYCERIN 0.4 MG SL TAB SL PRN (18:15)
[2020-03-23] MEDS ORDERED: DiphenhydrAMINE HCL 50 MG/ML VIAL IV PRN (18:15)
[2020-03-23] MEDS ORDERED: GUAIFENESIN-DM 200/20 MG 10 ML PO PRN (18:15)
[2020-03-23] MEDS ORDERED: CEFTRIAXONE SODIUM 1 GM IVP SCH (18:15)
[2020-03-23] MEDS ORDERED: LACTULOSE 20 GM/30 ML UDCUP PO PRN (18:15)
[2020-03-23] MEDS ORDERED: ACETAMINOPHEN-CODEINE 300/30MG TAB PO PRN ×2 (18:15)
[2020-03-23] MEDS ORDERED: DOXYCYCLINE 100MG+NS 250ML IV SCH (18:15)
[2020-03-23] MEDS ORDERED: ERGOCALCIFEROL (VITAMIN D2) 50,000 UNIT CAPSULE PO ONE (18:15)
[2020-03-23] MEDS ORDERED: ACETAMINOPHEN 325 MG TAB PO PRN ×2 (18:15)
[2020-03-23] MEDS ORDERED: ONDANSETRON HCL 4 MG/2 ML VIAL IV PRN (18:15)
[2020-03-23] MEDS ORDERED: MAG HYDROX/AL HYDROX/SIMETH ES 30 ML SUSP UDCUP PO PRN (18:15)
[2020-03-23] MEDS ORDERED: DIPHENHYDRAMINE HCL 25 MG CAPSULE PO PRN (18:15)
[2020-03-23] MEDS ORDERED: SODIUM CHLORIDE 0.9% 50 ML IV ONE (18:31)
[2020-03-23] MEDS ORDERED: ERGOCALCIFEROL (VITAMIN D2) 50,000 UNIT CAPSULE ONE (18:31)
[2020-03-23] MEDS ORDERED: CEFTRIAXONE SODIUM 1 GM ONE (18:31)
[2020-03-23 19:35] LABS: CRP QUANTITATIVE 22.4 mg/L (0.00-9.0)
[2020-03-23] MEDS ORDERED: ACETYLCYSTEINE 600 MG CAPSULE PO SCH (21:00)
[2020-03-23] MEDS ORDERED: BENZONATATE 100 MG CAPSULE PO SCH (21:00)
[2020-03-23] MEDS ORDERED: FAMOTIDINE 20MG TAB 20 MG TAB PO SCH (21:00)
[2020-03-23] MEDS ORDERED: DOXYCYCLINE 100MG+NS 250ML 250 ML IV SCH (21:00)
[2020-03-24] MEDS ORDERED: FAMOTIDINE 20MG TAB 20 MG TAB ONE ×3 (00:33→22:16)
[2020-03-24] MEDS ORDERED: ACETYLCYSTEINE 600 MG CAPSULE ONE ×3 (00:33→22:16)
[2020-03-24] MEDS ORDERED: BENZONATATE 100 MG CAPSULE PO ONE ×4 (00:33→22:17)
[2020-03-24] MEDS ORDERED: DOXYCYCLINE 100MG+NS 250ML 250 ML IV ONE ×2 (00:34→12:30)
[2020-03-24] MEDS ORDERED: ENOXAPARIN SODIUM 30 MG/0.3 ML SQ ONE (00:34)
[2020-03-24 06:02] LABS: BASOPHILS % (AUTO) 0.6 % (0.0-5.0); EOSINOPHILS % (AUTO) 1.5 % (0.0-8.0); HEMATOCRIT 39.7 % (42-54); LYMPHOCYTES % (AUTO) 11.5 % (21.0-51.0); MEAN CORPUSCULAR HEMOGLOBIN 28.7 pg (27.0-33.0); MEAN CORPUSCULAR HGB CONC 32.2 g/dL (32.0-36.0); MONOCYTES % (AUTO) 7.3 % (3.0-13.0); NEUTROPHILS % (AUTO) 73.8 % (40.0-77.0); PLATELET COUNT (AUTO) 213 K/uL (130-400); RED BLOOD CELL COUNT(AUTO) 4.46 MIL/uL (4.50-6.20); RED CELL DISTRIBUTION WIDTH 13.4 % (11.0-15.5); WHITE BLOOD COUNT (AUTO) 12.5 K/uL (4.8-10.8)
[2020-03-24 06:24] LABS: ALBUMIN 2.9 g/dL (3.5-5.0); CREATININE 1.2 mg/dL (0.5-1.5); CRP QUANTITATIVE 19.9 mg/L (0.00-9.0); POTASSIUM 4.6 mmol/L (3.5-5.1); TOTAL PROTEIN, SERUM 6.8 g/dL (6.0-8.3)
--- NOTE | 2020-03-24 08:15 | NUR ---
patient still in ER department,awaiting for patient to be transferred to medical floor in order to be able to initiate skilled Physical Therapy Evaluation. Addendum: 03/24/20 at 1213 by DINO LIANG, PT PT Amended: Links added.
--- NOTE | 2020-03-24 08:40 | NUR ---
CHART REVIEWED, NOTED THAT [facility]ATCH DID IA YESTERDAY WHEN CONSENT FOR REFERRAL OBTAINED AWAITING PCR RESULT Addendum: 03/24/20 at 0841 by OSCAR PARRA RN CM Amended: Links added.
--- NOTE | 2020-03-24 08:41 | NUR ---
NOTED LAST RECENT VISITS CM NOTES FOLLOWS: ""pt resides with spouse, independent with adls/ ambulation. no dme no home services....Goes to [facility] for md and meds.
[2020-03-24] MEDS ORDERED: ASPIRIN 81MG TAB.CHEW PO SCH (09:00)
[2020-03-24] MEDS ORDERED: ASCORBIC ACID 500 MG TAB PO SCH (09:00)
[2020-03-24] MEDS ORDERED: LEVETIRACETAM 500 MG TABLET PO SCH (09:00)
[2020-03-24] MEDS ORDERED: ENOXAPARIN SODIUM 40 MG/0.4 ML SYRINGE SQ SCH ×3 (09:00)
[2020-03-24] MEDS ORDERED: ZINC SULFATE 220 CAPSULE PO SCH (09:00)
[2020-03-24] MEDS ORDERED: ASCORBIC ACID 500 MG TAB ONE (09:01)
[2020-03-24] MEDS ORDERED: ENOXAPARIN SODIUM 40 MG/0.4 ML SYRINGE SQ ONE (09:03)
[2020-03-24] MEDS ORDERED: ZINC SULFATE 220 CAPSULE ONE (09:03)
[2020-03-24] MEDS ORDERED: ASPIRIN 81MG TAB.CHEW ONE (09:12)
[2020-03-24] MEDS ORDERED: LEVETIRACETAM 500 MG TABLET PO ONE ×2 (09:12→22:17)
[2020-03-24] MEDS ORDERED: CEFTRIAXONE SODIUM 1 GM ONE (12:30)
[2020-03-24 18:19] LABS: BASOPHILS % (AUTO) 0.5 % (0.0-5.0); EOSINOPHILS % (AUTO) 1.8 % (0.0-8.0); HEMATOCRIT 40.3 % (42-54); LYMPHOCYTES % (AUTO) 12.3 % (21.0-51.0); MEAN CORPUSCULAR HEMOGLOBIN 29.1 pg (27.0-33.0); MEAN CORPUSCULAR HGB CONC 32.8 g/dL (32.0-36.0); MONOCYTES % (AUTO) 8.8 % (3.0-13.0); NEUTROPHILS % (AUTO) 71.7 % (40.0-77.0); PLATELET COUNT (AUTO) 251 K/uL (130-400); RED BLOOD CELL COUNT(AUTO) 4.53 MIL/uL (4.50-6.20); RED CELL DISTRIBUTION WIDTH 13.5 % (11.0-15.5); WHITE BLOOD COUNT (AUTO) 10.5 K/uL (4.8-10.8)
[2020-03-24] MEDS ORDERED: ATORVASTATIN CALCIUM 40 MG TABLET PO SCH (21:00)
[2020-03-24] MEDS ORDERED: ATORVASTATIN CALCIUM 40 MG TABLET ONE (22:16)
[2020-03-25] MEDS ORDERED: CEFTRIAXONE SODIUM 1 GM ONE ×2 (02:04→13:37)
[2020-03-25] MEDS ORDERED: DOXYCYCLINE 100MG+NS 250ML 250 ML IV ONE ×2 (02:04→13:37)
[2020-03-25 05:21] LABS: BASOPHILS % (AUTO) 0.4 % (0.0-5.0); EOSINOPHILS % (AUTO) 1.4 % (0.0-8.0); HEMATOCRIT 40.2 % (42-54); MEAN CORPUSCULAR HEMOGLOBIN 29.1 pg (27.0-33.0); MEAN CORPUSCULAR HGB CONC 32.8 g/dL (32.0-36.0); MEAN CORPUSCULAR VOLUME 88.7 fL (79-99); MONOCYTES % (AUTO) 8.7 % (3.0-13.0); NEUTROPHILS % (AUTO) 72.2 % (40.0-77.0); PLATELET COUNT (AUTO) 219 K/uL (130-400); RED BLOOD CELL COUNT(AUTO) 4.53 MIL/uL (4.50-6.20); RED CELL DISTRIBUTION WIDTH 13.4 % (11.0-15.5); WHITE BLOOD COUNT (AUTO) 9.7 K/uL (4.8-10.8)
[2020-03-25 05:34] LABS: CRP QUANTITATIVE 11.3 mg/L (0.00-9.0)
--- NOTE | 2020-03-25 08:00 | NUR ---
patient still in ER department, awaiting for patient to be transferred to medical floor in order to be able to initate skilled Physical Therapy evaluation. Addendum: 03/25/20 at 1116 by DINO LIANG, PT PT Amended: Links added.
[2020-03-25] MEDS ORDERED: ASPIRIN 81MG TAB.CHEW ONE (08:32)
[2020-03-25] MEDS ORDERED: ASCORBIC ACID 500 MG TAB ONE (08:33)
[2020-03-25] MEDS ORDERED: ACETYLCYSTEINE 600 MG CAPSULE ONE (08:33)
[2020-03-25] MEDS ORDERED: FAMOTIDINE 20MG TAB 20 MG TAB ONE (08:33)
[2020-03-25] MEDS ORDERED: ZINC SULFATE 220 CAPSULE ONE (08:34)
[2020-03-25] MEDS ORDERED: BENZONATATE 100 MG CAPSULE PO ONE ×2 (08:34→14:22)
[2020-03-25] MEDS ORDERED: ENOXAPARIN SODIUM 40 MG/0.4 ML SYRINGE SQ ONE (08:34)
[2020-03-25] MEDS ORDERED: LEVETIRACETAM 500 MG TABLET PO ONE (08:34)
--- NOTE | 2020-03-25 17:30 | NUR ---
REFERRAL TO [facility] SENT THIS MORNING. REPEATED THE ANTIGEN- NEGATIVE. ALL INFO SENT, WAITING ON OK FROM [facility]. CALL TO SPOUSE WHEN RECEIVED CONFIRMATION ROHAN AWARE, NUMBER TO CALL REPORT GIVEN, VAN TRANSPORT. Addendum: 03/25/20 at 1733 by OSCAR PARRA RN CM Amended: Links added.
== END 2020-03-25 18:01 | DRG 177 ==
LOC: EDH 09:20 → EDHIP 18:14
PROVIDERS: ADMIT Internal Medicine; ATTEND Internal Medicine
DX: U07.1 COVID-19 (principal); J12.89 Other viral pneumonia; E44.1 Mild protein-calorie malnutrition; D64.9 Anemia, unspecified; E66.3 Overweight; E78.5 Hyperlipidemia, unspecified; I10 Essential (primary) hypertension; I25.10 Atherosclerotic heart disease of native coronary artery without angina pectoris; M40.209 Unspecified kyphosis, site unspecified; R09.02 Hypoxemia; R56.9 Unspecified convulsions; T38.0X5A Adverse effect of glucocorticoids and synthetic analogues, initial encounter; R53.81 Other malaise; I25.2 Old myocardial infarction; Z68.29 Body mass index [BMI] 29.0-29.9, adult; Z86.73 Personal history of transient ischemic attack (TIA), and cerebral infarction without residual deficits; Z88.8 Allergy status to other drugs, medicaments and biological substances; Z83.3 Family history of diabetes mellitus; Z82.49 Family history of ischemic heart disease and other diseases of the circulatory system; Y92.89 Other specified places as the place of occurrence of the external cause
CPT/HCPCS: 36415; 71045; 71250; 80053; 81003; 82550; 82728; 83605; 83615; 83874; 84145; 84484; 85025; 85378; 85610; 85651; 85730; 86140; 86900; 86901; 87040; 87088; 87426; 93005; G0378; J0696; J1650; J3490; U0003